=== PATIENT | female | born 1975 | race Caucasian/White ===

== ENCOUNTER 2017-07-18 19:34 | Emergency (ER) | payer OTHER ==
[~2017-07-18 19:34] MED LIST: ACE500 PO; IBU800 PO; NO MEDS; [UNRECOGNIZED DRUG - OTHER]
--- NOTE | 2017-07-18 20:28 | RADIOLOGY IMAGING REPORT ---
FACILITY: [facility] PATIENT NAME: Amelia Coronado : 1975 MR: [id number] V: [id number] EXAM DATE: ORDERING PHYSICIAN: CASSIDY DEL TORO TECHNOLOGIST: Location: [facility] [place] Patient: Amelia Coronado : 1975 Visit/Account:[id number] Date of Sevice: 07/18/2017 HAND COMPLETE LEFT Indication: Pain after jamming middle finger on the ground. Comparison: None Available. Findings: 3 views of the left hand. The middle finger does show dislocation at the PIP joint with displacement of the middle phalanx posteriorly and inferiorly. No discrete fracture is identified. Soft tissue swe lling without radiopaque foreign body. No other bony or joint abnormality. There is a tiny density ad jacent to the distal third metacarpal, mostly from previous injury. Soft tissues otherwise unremarkab le. IMPRESSION: 1. Dislocation of the PIP joint of the left third finger. No discrete fracture is identified. Report Dictated By: Yg Neves at 07/18/2017 8:20 PM Report E-Signed By: Yg Neves at 07/18/2017 8:24 PM WSN:[id number]
--- NOTE | 2017-07-18 20:36 | ER Report ---
History and Physical Time Seen By MD: 19:42 Hx. of Stated Complaint: RIGHT MIDDLE FINGER INJURY FROM ROLLER DERBY HPI/ROS CHIEF COMPLAINT: Finger deformity HISTORY OF PRESENT ILLNESS: This is a 42-year-old female who presents to the emergency department for a left 3rd finger deformity. Patient states that she was in a roller coaster return amount tonight and fell to the ground jammed her finger to the ground and when she stood up she noticed that she had some shortening of her left 3rd finger. Patient states that this happened approximately 20 minutes prior to arrival. Patient denies taking any medications prior to arrival. Patient denies any other complaints no wrist pain , no shoulder or elbow pain. No nausea or vomiting. No aches or chills. REVIEW OF SYSTEMS: Respiratory: No cough, no dyspnea. Cardiovascular: No chest pain, no palpitations. Gastrointestinal: No vomiting, no abdominal pain. Musculoskeletal: As above. Allergies: Coded Allergies: codeine (Verified Allergy, Mild, RASH, 07/18/17) hydrocodone (Verified Allergy, Mild, ITCH AND RASH, 07/18/17) Home Meds Discontinued Reported Medications [No Meds] No Conflict Check, 0 Refills 08/01/08 Past Medical/Surgical History Patient has a past medical and surgical history of abdominal surgery tummy tuck , right acromioplasty, breast implants. Reviewed Nurses Notes: Yes Hx Smoking: No Smoking Status: Never Smoker Hx Substance Use Disorder: No Hx Alcohol Use: No Constitutional Vital Sign - Last 24 Hours 07/18/17 07/18/17 19:39 21:26 Temp 99.1 Pulse 90 85 Resp 16 16 B/P (MAP) 150/98 142/93 (109) Pulse Ox 96 95 O2 Delivery Room Air Room Air Physical Exam General Appearance: The patient is alert, has no immediate need for airway protection and no current signs of toxicity. Eyes: Pupils equal and round no injection. Respiratory: Chest is non tender, lungs are clear to auscultation. Cardiac: regular rate and rhythm. Gastrointestinal: Abdomen is soft and non tender, no masses, bowel sounds normal. Musculoskeletal: Neck: Neck is supple and non tender. Extremities the 3rd middle finger on the left hand is shortened at the PIP. No other deformities. CMS intact distal to the injury. No crepitus. Skin: No rashes or lesions. DIFFERENTIAL DIAGNOSIS: After history and physical exam differential diagnosis was considered for finger dislocation and finger fracture. Medical Decision Making EKG/Imaging Imaging Location: [facility] - [place] Patient: Amelia Coronado : 1975 Visit/Account:[id number] Date of Sevice: 07/18/2017 HAND COMPLETE LEFT Indication: Pain after jamming middle finger on the ground. Comparison: None Available. Findings: 3 views of the left hand. The middle finger does show dislocation at the PIP joint with displacement of the middle phalanx posteriorly and inferiorly. No discrete fracture is identified. Soft tissue swelling without radiopaque foreign body. No other bony or joint abnormality. There is a tiny density adjacent to the distal third metacarpal, mostly from previous injury. Soft tissues otherwise unremarkable. IMPRESSION: 1. Dislocation of the PIP joint of the left third finger. No discrete fracture is identified. Report Dictated By: Yg Neves at 07/18/2017 8:20 PM Report E-Signed By: Yg Neves at 07/18/2017 8:24 PM WSN:[id number] EXAMINATION: Left hand radiographs 3 views HISTORY: Post reduction of third finger. COMPARISON: None. FINDINGS: PA, lateral and oblique views of the left hand are obtained. Bones: Successful reduction of the PIP joint of the left third finger. No evidence of acute fracture. Joint spaces: Negative. Hardware: None. Alignment: Normal. Soft tissues: Negative. IMPRESSION: Successful reduction of the previously seen dislocation of the PIP joint of the left third finger. No acute fracture. Report Dictated By: Isaac Feng MD at 07/18/2017 9:08 PM Report E-Signed By: Isaac Feng MD at 07/18/2017 9:10 PM WSN:[id number] ED Course/Re-evaluation ED Course The patient was admitted to a room. A history and physical were obtained. Differential diagnoses were considered. A left hand x-ray showing a dislocated 3rd finger at the PIP joint. The finger was anesthetized using 2% lidocaine, digitally blocked. Patient tolerated well. The finger was reduced without complications. A repeat x-ray of the hand showing positive reduction of the left middle finger with no signs of fracture. A patient was placed in a finger splint and instructed to follow-up with [facility] within 1 week. Take ibuprofen or Tylenol as needed for pain. Turned to the ER for any other concerns worsening symptoms. Decision to Disposition Date: Jul 18, 2017 Decision to Disposition Time: 21:19 Depart Departure Latest Vital Signs Vital Signs Date Time Temp Pulse Resp B/P (MAP) Pulse Ox O2 Delivery O2 Flow Rate FiO2 07/18/17 21:26 85 16 142/93 (109) 95 Room Air 07/18/17 19:39 99.1 Impression: Primary Impression: Dislocation of left middle finger Condition: Improved Disposition: HOME OR SELF-CARE [facility] 1 Week New Scripts No Active Prescriptions or Reported Meds Patient Instructions: Finger Dislocation (ED) Additional Instructions: Drink plenty of fluids. Get plenty of rest. Take ibuprofen or Tylenol as needed for pain. Keep the splint on for comfort. [facility] for [facility] the finger. Return to the ED for any other concerns or worsening symptoms. Problem Qualifiers Primary Impression: Dislocation of left middle finger Encounter type: initial encounter Qualified Codes: S63.253A - Unspecified dislocation of left middle finger, initial encounter CASSIDY DEL TORO CHARTER PILOT-BC Jul 18, 2017 20:36
--- NOTE | 2017-07-18 21:13 | RADIOLOGY IMAGING REPORT ---
FACILITY: [facility] PATIENT NAME: Amelia Coronado : 1975 MR: [id number] V: [id number] EXAM DATE: ORDERING PHYSICIAN: CASSIDY DEL TORO TECHNOLOGIST: Location: [facility] Patient: Amelia Coronado : 1975 Visit/Account:[id number] Date of Sevice: 07/18/2017 EXAMINATION: Left hand radiographs 3 views HISTORY: Post reduction of third finger. COMPARISON: None. FINDINGS: PA, lateral and oblique views of the left hand are obtained. Bones: Successful reduction of the PIP joint of the left third finger. No evidence of acute fracture . Joint spaces: Negative. Hardware: None. Alignment: Normal. Soft tissues: Negative. IMPRESSION: Successful reduction of the previously seen dislocation of the PIP joint of the left third finger. No acute fracture. Report Dictated By: Isaac Feng MD at 07/18/2017 9:08 PM Report E-Signed By: Isaac Feng MD at 07/18/2017 9:10 PM WSN:[id number]
[2017-07-18 21:26] VITALS: BP 142/93
== END 2017-07-18 21:21 | disposition home or self-care (01) ==
LOC: ER 19:44
DX: S63.253A Unspecified dislocation of left middle finger, initial encounter (principal)
CPT/HCPCS: 99283